=== PATIENT | female | born 1985 | race Native Hawaiian/Other Pacific Islander ===

== ENCOUNTER 2016-06-28 08:52 | Emergency (ER) | payer OTHER ==
[2016-06-28 09:07] VITALS: BP 117/83
[2016-06-28] MEDS ORDERED: TORADOL IM ONE (10:23)
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
== END 2016-06-28 11:34 | disposition home or self-care (01) ==
LOC: ED 08:52
DX: M25.562 Pain in left knee (principal); M79.605 Pain in left leg; M79.602 Pain in left arm; V89.2XXA Person injured in unspecified motor-vehicle accident, traffic, initial encounter; W22.10XA Striking against or struck by unspecified automobile airbag, initial encounter; Y93.89 Activity, other specified; Y99.8 Other external cause status; Y92.89 Other specified places as the place of occurrence of the external cause
CPT/HCPCS: 96372; 99282; J1885